=== PATIENT | male | born 1930 | race Caucasian/White ===

== ENCOUNTER → 2016-08-14 | Outpatient (CLI) | payer MEDICARE ==
--- NOTE | 2016-08-14 13:06 | PCVCIMAG ---
EXAM: BILATERAL SUPERFICIAL VENOUS DUPLEX INDICATION: Leg pain and swelling. FINDINGS: Right leg: No thrombus in the common femoral, main femoral, or popliteal veins. These veins are compressible. Right Great Saphenous Vein: At the saphenofemoral junction the diameter is 11.5 mm, in the mid thigh it is 5.2 mm, and in the calf it is 4.0 mm. There is not significant venous insufficiency/reflux throughout. Venous insufficiency/reflux duration is 0 seconds. Right Small Saphenous Vein: At the saphenopopliteal junction the diameter is 5.0 mm, and in the calf it is 2.4 mm. There is not significant venous insufficiency/reflux throughout. Venous insufficiency/reflux duration is 0 seconds. There is not a cranial extension present. Left leg: No thrombus in the common femoral, main femoral, or popliteal veins. These veins are compressible. Left Great Saphenous Vein: At the saphenofemoral junction the diameter is 8.9 mm, in the mid thigh it is 4.1 mm, and in the calf it is 4.2 mm. There is significant venous insufficiency/reflux seen at the level of the lower leg. Venous insufficiency/reflux duration is 11.9 seconds. Left Small Saphenous Vein: At the saphenopopliteal junction the diameter is 5.9 mm, and in the calf it is 3.5 mm. There is not significant venous insufficiency/reflux throughout. Venous insufficiency/reflux duration is 0 seconds. There is not a cranial extension present. IMPRESSION: Right Great Saphenous Vein: No significant venous insufficiency/reflux is present as noted above. Right Small Saphenous Vein: No significant venous insufficiency/reflux is present as noted above. 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 Further assessment for lower leg incompetent perforating veins may be of value. Note is made the great saphenous vein is mildly decreased in size throughout. Left Small Saphenous Vein: No significant venous insufficiency/reflux is present as noted above. LOC:[id number]
== END | disposition home or self-care (01) ==
LOC: PCVCIMAG 10:49
PROVIDERS: ATTEND Internal Medicine Cardiovascular Disease
DX: I87.2 Venous insufficiency (chronic) (peripheral) (principal)
CPT/HCPCS: 93970

== ENCOUNTER → 2016-10-27 | Outpatient (CLI) | payer MEDICARE ==
--- NOTE | 2016-10-27 15:44 | PCVCIMAG ---
EXAM: BILATERAL CAROTID DUPLEX INDICATION: Carotid Occlusive Disease. FINDINGS: Doppler Measurements (centimeters per second): RIGHT: Peak CCA-63, Peak ECA-85, Diastolic ICA-11, Peak ICA-64, ICA/CCA Ratio-1.0. LEFT: Peak CCA-70, Peak ECA-85, Diastolic ICA-13, Peak ICA-77, ICA/CCA Ratio-1.1. RIGHT CAROTID: The carotid bulb has mild plaque. The proximal internal carotid artery shows <40% stenosis. The common carotid artery shows no significant stenosis. The external carotid artery shows no significant stenosis. LEFT CAROTID: The carotid bulb has mild plaque. The proximal internal carotid artery shows <40% stenosis. The common carotid artery shows no significant stenosis. The external carotid artery shows no significant stenosis. Antegrade flow in both vertebral arteries. IMPRESSION: <40% stenosis of the right internal carotid artery with mild plaque. <40% stenosis of the left internal carotid artery with mild plaque. LOC:[id number]
--- NOTE | 2016-10-27 18:50 | PCVCIMAG ---
APPROVED REPORT Study performed: 10/27/2016 12:40:42 EXAM: Comprehensive 2D, Doppler, and color-flow Echocardiogram Patient Location: Echo lab BSA: 2.26 HR: 70 bpmBP: 122/70 mmHg Rhythm: NSR Other Information Study Quality: Adequate Risk Factors: Cardiac Risk Factors: DM, HTN Indications Aortic Stenosis 2D Dimensions LVEF(%): 51.74 (>50%) IVSd: 11.70 (7-11mm)LVOT Diam: 21.49 (18-24mm) LVDd: 49.08 mm PWd: 11.53 (7-11mm) LVDs: 36.06 (25-40mm) Left Atrium: 44.66 (27-40mm) Aortic Root: 34.25 mm LV Single Plane 4CH: 62.86 % LV Single Plane 2CH: 62.90 %King's LVEF: 62.88 % Biplane EF: 63.0 % Volumes Left Atrial Volume (Systole) Single Plane 4CH: 97.78 mLSingle Plane 2CH: 89.44 mL LA ESV Index: 43.00 mL/m2 Aortic Valve AoV Peak Will.: 3.91 m/s AO Peak Gr.: 61.26 mmHgLVOT Max P.91 mmHg AO Mean Gr.: 31.87 mmHgLVOT Mean P.51 mmHg AO V2 Mean: 2.64 m/sLVOT Max V: 1.10 m/s AO V2 VTI: 96.67 cmLVOT Mean V: 0.74 m/s GREGOR (VTI): 0.99 [id number] V1 VTI: 26.47 cm GREGOR Vmax: 1.02 cm2 SV (LVOT): 95.97 mL Mitral Valve E/A Ratio: 0.9 MV Decel. Time: 210.31 ms MV E Max Will.: 1.20 m/s MV A Will.: 1.31 m/s MV PHT: 91.96 ms MVA (PHT): 2.39 cm2 IVRT: 83.04 ms Pulmonary Valve PV Peak Will.: 1.11 m/sPV Peak Gr.: 4.94 mmHg Pulmonary Vein P Vein S: 0.54 m/sP Vein A: 0.27 m/s P Vein D: 0.66 m/sP Vein A Dur.: 148.8 msec P Vein S/D Ratio: 0.82 Tricuspid Valve TR Peak Will.: 2.47 m/s TR Peak Gr.: 24.40 mmHg Left Ventricle The left ventricle is normal size. There is normal LV segmental wall motion. Mild concentric left ventricular hypertrophy. Left ventricular systolic function is normal. The left ventricular ejection fraction is within the normal range. LVEF is 60-65%. Grade I - abnormal relaxation pattern. Right Ventricle The right ventricle is normal size. The right ventricular systolic function is normal. Atria Left atrium is moderately dilated. The right atrium size is normal. Aortic Valve The aortic valve is moderately calcified. No aortic regurgitation is present. There is no significant aortic valve stenosis. There is moderate valvular aortic stenosis. Calculated aortic valve area is 1.0 cm2 with maximum pressure gradient of 61 mmHg and mean pressure gradient of 32 mmHg. Mitral Valve The mitral valve is normal in structure. Mild mitral regurgitation. No evidence of mitral valve stenosis. Tricuspid Valve The tricuspid valve is normal in structure. Mild tricuspid regurgitation with PAP of 31 mmHg. Pulmonic Valve The pulmonary valve is normal in structure. Trace pulmonic regurgitation. Great Vessels The aortic root is normal in size. IVC is normal in size and collapses with >50% inspiration Pericardium There is no pericardial effusion. <Conclusion> The left ventricle is normal size. Mild concentric left ventricular hypertrophy. LVEF is 60-65%. Grade I - abnormal relaxation pattern. The right ventricle is normal size. Left atrium is moderately dilated. The aortic valve is moderately calcified. There is no significant aortic valve stenosis. There is moderate valvular aortic stenosis. Calculated aortic valve area is 1.0 cm2 with maximum pressure gradient of 61 mmHg and mean pressure gradient of 32 mmHg. Mild mitral regurgitation. Mild tricuspid regurgitation with PAP of 31 mmHg. There is no pericardial effusion.
== END | disposition home or self-care (01) ==
LOC: PCVCIMAG 12:36
PROVIDERS: ATTEND Internal Medicine Cardiovascular Disease
DX: I65.23 Occlusion and stenosis of bilateral carotid arteries (principal); I34.0 Nonrheumatic mitral (valve) insufficiency; I07.1 Rheumatic tricuspid insufficiency; I37.1 Nonrheumatic pulmonary valve insufficiency; I10 Essential (primary) hypertension; E11.9 Type 2 diabetes mellitus without complications; G47.33 Obstructive sleep apnea (adult) (pediatric); I35.0 Nonrheumatic aortic (valve) stenosis; E78.00 Pure hypercholesterolemia, unspecified; K21.9 Gastro-esophageal reflux disease without esophagitis; H90.2 Conductive hearing loss, unspecified; I44.0 Atrioventricular block, first degree; I49.3 Ventricular premature depolarization; I87.2 Venous insufficiency (chronic) (peripheral); Z79.82 Long term (current) use of aspirin; Z96.653 Presence of artificial knee joint, bilateral; Z87.891 Personal history of nicotine dependence; Z88.1 Allergy status to other antibiotic agents; Z88.2 Allergy status to sulfonamides
CPT/HCPCS: 80061; 93005; 93306; 93880; G0463

== ENCOUNTER → 2017-06-30 | Outpatient (CLI) | payer MEDICARE | END | disposition home or self-care (01) | LOC: PCVCCLINIC 14:12 | DX: E78.00 Pure hypercholesterolemia, unspecified (principal); I10 Essential (primary) hypertension; I35.0 Nonrheumatic aortic (valve) stenosis; I87.2 Venous insufficiency (chronic) (peripheral); E11.9 Type 2 diabetes mellitus without complications; G47.33 Obstructive sleep apnea (adult) (pediatric); K21.9 Gastro-esophageal reflux disease without esophagitis; Z87.891 Personal history of nicotine dependence; Z79.82 Long term (current) use of aspirin; Z79.899 Other long term (current) drug therapy; Z88.8 Allergy status to other drugs, medicaments and biological substances | CPT/HCPCS: 80061; 93005; G0463 ==

== ENCOUNTER → 2018-01-05 | Outpatient (CLI) | payer MEDICARE ==
--- NOTE | 2018-01-05 16:37 | PCVCIMAG ---
APPROVED REPORT Study performed: 01/05/2018 13:06:13 EXAM: Comprehensive 2D, Doppler, and color-flow Echocardiogram Patient Location: Echo lab Room #: [id number]: routine BSA: 2.21 HR: 71 bpmBP: 124/54 mmHg Rhythm: NSR Other Information Study Quality: Good Risk Factors: Cardiac Risk Factors: HTN, DM Indications Aortic Valve Disease Diabetes Hypertension/HDD 2D Dimensions IVSd: 10.30 (7-11mm)LVOT Diam: 20.97 (18-24mm) LVDd: 49.39 mm PWd: 10.59 (7-11mm)Ascending Ao: 32.58 (22-36mm) LVDs: 35.38 (25-40mm) Left Atrium: 41.56 (27-40mm) Aortic Root: 28.15 mm LV Single Plane 4CH: 70.51 % LV Single Plane 2CH: 56.17 % Biplane EF: 65.4 % Volumes Left Atrial Volume (Systole) Single Plane 4CH: 74.20 mLSingle Plane 2CH: 75.83 mL Biplane LA Volume: 80.00 mLLA ESV Index: 36.00 mL/m2 Aortic Valve AoV Peak Will.: 4.18 m/s AO Peak Gr.: 70.28 mmHgLVOT Max P.70 mmHg AO Mean Gr.: 42.06 mmHgLVOT Mean P.54 mmHg AO V2 Mean: 3.10 m/sLVOT Max V: 1.10 m/s AO V2 VTI: 102.37 cm GREGOR (VTI): 1.01 [id number] V1 VTI: 29.85 cm GREGOR Vmax: 0.91 cm2 AI Vmax: 3.58 m/s AI [place]: 2.95 m/s2 AI PHT: 352.15 ms Mitral Valve E/A Ratio: 0.9 MV Decel. Time: 147.65 ms MV E Max Will.: 1.10 m/s MV A Will.: 1.22 m/s MV PHT: 42.82 ms IVRT: 65.74 ms Pulmonary Valve PV Peak Will.: 1.28 m/sPV Peak Gr.: 6.55 mmHg Pulmonary Vein P Vein S: 0.65 m/sP Vein A: 0.29 m/s P Vein D: 0.53 m/sP Vein A Dur.: 103.8 msec P Vein S/D Ratio: 1.23 Tricuspid Valve TR Peak Will.: 2.24 m/s TR Peak Gr.: 20.11 mmHg TV Vmax: 0.67 m/sPA Pressure: 39.00 mmHg Left Ventricle The left ventricle is normal size. There is normal LV segmental wall motion. Borderline concentric left ventricular hypertrophy. Left ventricular systolic function is normal. The left ventricular ejection fraction is within the normal range. LVEF is 60-65%. The left ventricular diastolic function is normal. Right Ventricle The right ventricle is normal size. The right ventricular systolic function is normal. Atria Left atrium is mildly dilated. The right atrium size is normal. Aortic Valve Aortic valve is trileaflet. Severe aortic valve sclerosis with severely reduced leaflet excursion. Moderate aortic regurgitation. Moderate to severe aortic stenosis. Highest mean aortic valve gradient is 42 mmHg. Peak aortic valve gradient is 69.8 mmHg. Calculated GREGOR by the continuity equation is _1.0 cm2. Mitral Valve The mitral valve is normal in structure. Moderate mitral regurgitation. No evidence of mitral valve stenosis. Tricuspid Valve The tricuspid valve is normal in structure. Trace tricuspid regurgitation. Pulmonic Valve The pulmonary valve is normal in structure. There is no pulmonic valvular regurgitation. Great Vessels The aortic root is normal in size. Aortic arch is normal in caliber. IVC is normal in size and collapses >50% with inspiration. Pericardium There is no pericardial effusion. There is no pleural effusion. <Conclusion> The left ventricle is normal size. Borderline concentric left ventricular hypertrophy. LVEF is 60-65%. The left ventricular diastolic function is normal. The right ventricle is normal size. Left atrium is mildly dilated. Aortic valve is trileaflet. Severe aortic valve sclerosis with severely reduced leaflet excursion. Moderate to severe aortic stenosis. Highest mean aortic valve gradient is 42 mmHg. Peak aortic valve gradient is 69.8 mmHg. Calculated GREGOR by the continuity equation is _1.0 cm2. Moderate aortic regurgitation. Moderate mitral regurgitation. Trace tricuspid regurgitation. The aortic root is normal in size. There is no pericardial effusion.
== END | disposition home or self-care (01) ==
LOC: EDSTATUS 10:44 → PCVCIMAG 13:00
PROVIDERS: ATTEND Internal Medicine Cardiovascular Disease
DX: I08.0 Rheumatic disorders of both mitral and aortic valves (principal); I10 Essential (primary) hypertension; I87.2 Venous insufficiency (chronic) (peripheral); E78.00 Pure hypercholesterolemia, unspecified; E11.9 Type 2 diabetes mellitus without complications; K21.9 Gastro-esophageal reflux disease without esophagitis; G47.33 Obstructive sleep apnea (adult) (pediatric); Z79.82 Long term (current) use of aspirin; Z87.891 Personal history of nicotine dependence
CPT/HCPCS: 80061; 93005; 93306; G0463

== ENCOUNTER → 2018-11-14 | Outpatient (CLI) | payer MEDICARE ==
--- NOTE | 2018-11-14 13:05 | PCVCIMAG ---
APPROVED REPORT Study performed: 11/14/2018 09:01:13 EXAM: Comprehensive 2D, Doppler, and color-flow Echocardiogram Patient Location: Echo lab Status: routine BSA: 2.21 HR: 68 bpmBP: 118/70 mmHg Rhythm: NSR Other Information Study Quality: Good Risk Factors: Cardiac Risk Factors: HTN, , Hyperlipidemia, , DM Indications Aortic Valve Disease 2D Dimensions IVSd: 17.16 (7-11mm)LVOT Diam: 19.94 (18-24mm) LVDd: 44.89 mm PWd: 14.64 (7-11mm)Ascending Ao: 32.84 (22-36mm) LVDs: 32.67 (25-40mm) Left Atrium: 45.38 (27-40mm) Aortic Root: 32.25 mm LV Single Plane 4CH: 66.12 % Volumes Left Atrial Volume (Systole) Single Plane 4CH: 71.78 mLSingle Plane 2CH: 56.60 mL Aortic Valve AoV Peak Will.: 4.66 m/s AO Peak Gr.: 86.70 mmHgLVOT Max P.26 mmHg AO Mean Gr.: 55.47 mmHgLVOT Mean P.59 mmHg AO V2 Mean: 3.53 m/sLVOT Max V: 1.15 m/s AO V2 VTI: 122.02 cmLVOT Mean V: 0.72 m/s GREGOR (VTI): 0.63 [id number] V1 VTI: 24.80 cm GREGOR Vmax: 0.77 cm2 AI Vmax: 3.35 m/sSV (LVOT): 77.38 mL AI [place]: 2.31 m/s2 AI PHT: 422.93 ms Mitral Valve E/A Ratio: 1.0 MV Decel. Time: 246.56 ms MV E Max Will.: 1.25 m/s MV A Will.: 1.29 m/s IVRT: 76.12 ms TDI E/Lateral E': 25.00E/Medial E': 25.00 Medial E' Will.: 0.05 m/s Lateral E' Will.: 0.05 m/s Pulmonary Vein P Vein S: 0.54 m/sP Vein A: 0.48 m/s P Vein D: 0.38 m/sP Vein A Dur.: 114.2 msec P Vein S/D Ratio: 1.42 Left Ventricle The left ventricle is normal size. There is normal LV segmental wall motion. Mild concentric left ventricular hypertrophy. Left ventricular systolic function is normal. The left ventricular ejection fraction is within the normal range. LVEF is 60-65%. Grade I - abnormal relaxation pattern. Right Ventricle The right ventricle is normal size. The right ventricular systolic function is normal. Atria The left atrium size is normal. The right atrium size is normal. Aortic Valve Aortic valve is probably trileaflet. Aortic valve leaflets are moderately thickened. Trace aortic regurgitation. Peak gradient is 86mmHg. Mean gradient is 56mmHg. Calculated aortic valve area is 0.7cm2. Mitral Valve Mild mitral annular calcification. Mild mitral regurgitation. No evidence of mitral valve stenosis. Tricuspid Valve The tricuspid valve is normal in structure. There is no tricuspid valve regurgitation noted. Pulmonic Valve The pulmonary valve is normal in structure. There is no pulmonic valvular regurgitation. Great Vessels The aortic root is normal in size. IVC is normal in size and collapses >50% with inspiration. Pericardium There is no pericardial effusion. <Conclusion> The left ventricle is normal size. Mild concentric left ventricular hypertrophy. LVEF is 60-65%. Grade I - abnormal relaxation pattern. The right ventricle is normal size. The left atrium size is normal. Aortic valve is probably trileaflet. Aortic valve leaflets are moderately thickened. Trace aortic regurgitation. Peak gradient is 86mmHg. Mean gradient is 56mmHg. Calculated aortic valve area is 0.7cm2. Mild mitral annular calcification. Mild mitral regurgitation. There is no tricuspid valve regurgitation noted. The aortic root is normal in size. There is no pericardial effusion.
== END | disposition home or self-care (01) ==
LOC: PCVCIMAG 08:41
PROVIDERS: ATTEND Internal Medicine Cardiovascular Disease
DX: I34.0 Nonrheumatic mitral (valve) insufficiency (principal); I11.9 Hypertensive heart disease without heart failure; E78.00 Pure hypercholesterolemia, unspecified; E11.9 Type 2 diabetes mellitus without complications; I87.2 Venous insufficiency (chronic) (peripheral); I65.23 Occlusion and stenosis of bilateral carotid arteries; I10 Essential (primary) hypertension; Z87.891 Personal history of nicotine dependence
CPT/HCPCS: 36415; 80061; 93005; 93306; G0463